=== PATIENT | male | born 1955 | race Caucasian/White ===

== ENCOUNTER → 2020-03-14 | Outpatient (CLI) | payer BC ==
[~2020-03-14] MED LIST: FUROSEMIDE 10 MG/ML 2 ML VIAL IV ONE
--- NOTE | 2020-03-14 16:05 | NM ---
EXAMINATION TYPE: NM lasix renogram DATE OF EXAM: 03/14/2020 COMPARISON: NONE HISTORY: Hydronephrosis Following administration of 10.1 mCi Tc 99m MAG3 with 20mg Lasix. Immediate images post injection FINDINGS: Left: 72.9 %. Right: 27.1 %. Max renal flow left: 2.5 minutes. Max renal flow right: 27.1 minutes. Satisfactory accumulation of radiotracer within both renal collecting systems. After the administrati on of Lasix, there is prompt excretion from both collecting systems. T 1/2 left: 20.5 minutes minutes. T 1/2 right: NA minutes. IMPRESSION: Obstruction of the right kidney
== END | disposition home or self-care (01) ==
LOC: RADNMMAIN 07:37
PROVIDERS: ATTEND Urology
DX: N28.89 Other specified disorders of kidney and ureter (principal)
CPT/HCPCS: 78708; A9562

== ENCOUNTER → 2020-03-25 | Outpatient (CLI) | payer BC ==
--- NOTE | 2020-03-25 10:28 | XR ---
EXAMINATION TYPE: XR chest 2V DATE OF EXAM: 03/25/2020 COMPARISON: NONE HISTORY: History of COPD with shortness of breath. TECHNIQUE: Frontal and lateral views of the chest are obtained. FINDINGS: Pectus excavatum deformity. There is some chronic parenchymal changes without suspicious fo kirti air space opacity, pleural effusion, or pneumothorax seen bilaterally. The cardiac silhouette si ze is within normal limits. The osseous structures are intact. IMPRESSION: No acute cardiopulmonary process.
[2020-03-25 10:36] LABS: Basophils # (A) 0.1 k/uL (0-0.2); Basophils % (A) 1 %; Eosinophils # (A) 0.2 k/uL (0-0.7); Eosinophils % (A) 4 %; HCT 45.1 % (39.0-53.0); HGB 14.2 gm/dL (13.0-17.5); Lymphocytes # (A) 1.8 k/uL (1.0-4.8); Lymphocytes % (A) 30 %; MCH 29.6 pg (25.0-35.0); MCHC 31.6 g/dL (31.0-37.0); MCV 93.6 fL (80.0-100.0); Mean Platelet Volume 6.6; Monocytes # (A) 0.3 k/uL (0-1.0); Monocytes % (A) 5 %; Neutrophils # (A) 3.6 k/uL (1.3-7.7); Neutrophils % (A) 58 %; Platelet Count 298 k/uL (150-450); RBC 4.82 m/uL (4.30-5.90); WBC 6.2 k/uL (3.8-10.6)
[2020-03-25 10:47] LABS: Calcium 9.5 mg/dL (8.4-10.2); Potassium 5.5 mmol/L (3.5-5.1)
== END ==
LOC: LABPAT 09:42
PROVIDERS: ATTEND Urology
DX: Z01.818 Encounter for other preprocedural examination (principal); N13.30 Unspecified hydronephrosis
CPT/HCPCS: 36415; 71046; 80048; 85025

== ENCOUNTER → 2020-04-01 | Day surgery (SDC) | payer BC ==
--- NOTE | 2020-03-28 17:26 | P.HPIHPCON ---
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 He underwent a Mag3 which showed evidence of obstruction on the right side and diminished function. Of note he is a heavy smoker. I discussed with him that I recommend he undergoes a cysto RPG with possible ureteroscopy to role out malignancy.I discussed with him he most likely will need pyeloplasty to address his obstruction. Discussed with him risk of ureteroscopy includes but not limited to bleeding, infection and injury to the ureter. He understood all the risks and agreed to proceed Consent for Procedure: I have explained the operation/procedure to the patient, including the risks, benefits, side effects, alternative therapies (including not receiving the proposed treatment or service), the likelihood of the patient achieving his/her goals, and potential recuperation problems for the procedure/sedation/analgesia, as well as any blood products, if indicated. I also explained to the patient the risks, benefits and side effects of the alternatives, as well as the risks related to not receiving the proposed procedure, care, treatment, or services. - Constitutional Constitutional: Denies chills, Denies fever - Cardiovascular Cardiovascular: Denies chest pain, Denies shortness of breath - Respiratory Respiratory: Denies cough, Denies 7 Medications and Allergies Allergies Allergy/AdvReac Type Severity Reaction Status Date / Time No Known Allergies Allergy Unverified 03/14/20 07:48 Surgical - Exam - General well developed, well nourished, no distress - Respiratory normal expansion, normal respiratory effort - Abdomen Abdomen: soft, non tender Assessment and Plan Assessment: 64 yo male with hx of right sided hydronephrosis suspicious for UPJO Plan: -OR for cysto right RPG possible ureteroscopy
[2020-03-29 09:20] VITALS: BMI 22.1
[~2020-04-01] MED LIST changes: +DEXAMETHASONE SOD PHOSPHATE 10 MG/ML 1 ML VIAL IV ONE; -FUROSEMIDE 10 MG/ML 2 ML VIAL IV ONE; +HYDROmorphone 0.5 MG/0.5 ML SYRINGE IVP PRN; +IOPAMIDOL-370 50ML BTL MISCELLANE ONE; +LACTATED RINGERS 1,000 ML IV ONE; +LACTATED RINGERS 1,000 ML IV SCH; +LIDOCAINE 1% (10MG/ML) FOR IV START INTRADERMA ONE; +LIDOCAINE 1% INJ 10MG/ML (20 ML MDV) ONE; +MIDAZOLAM 2 MG/2 ML VIAL IV PRN; +MIDAZOLAM 2 MG/2 ML VIAL ONE; +ONDANSETRON 4 MG/2 ML VIAL IVP ONE; +ONDANSETRON 4 MG/2 ML VIAL ONE; +PROPOFOL 10 MG/ML 20 ML VIAL IV ONE; +SUCCINYLCHOLINE CHLORIDE 100 MG/5 ML SYR IV ONE; +fentaNYL (PF) 50 MCG/ML 2 ML AMP ONE
[2020-04-01 17:19] VITALS: TEMP 96.9
--- NOTE | 2020-04-01 17:20 | P.OP ---
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 He underwent a Mag3 which showed evidence of obstruction on the right side and diminished function. Of note he is a heavy smoker. I discussed with him that I recommend he undergoes a cysto RPG with possible ureteroscopy to role out malignancy.I discussed with him he most likely will need pyeloplasty to address his obstruction. Discussed with him risk of ureteroscopy includes but not limited to bleeding, infection and injury to the ureter. He understood all the risks and agreed to proceed Operative Findings: narrowing at the UPJ,with tortures proximal ureter Description of Procedure: Patient was brought to the operating room, general anesthesia was induced. He was prepped and draped in sterile fashion placed in a dorsal lithotomy position. Cystoscopy fitted with a 22 sheath was inserted per urethra. cystoscopy was performed showed no abnormality within the bladder. at this point attention was carried to the right ureteral orifice. Which was intubated with a 6-[place] open-ended catheter. Retrograde pyelogram was performed which showed a torturous proximal ureter and a pinpoint narrowing at the UPJ with severe hydronephrosis. There was no filling defect along the ureter or any additional filling defects. The finding was consistent with UPJ obstruction. At this time the bladder was emptied, the patient tolerated the procedure well was taken to PACU in stable condition
[2020-04-01 17:57] VITALS: RESP 18
[2020-04-01 17:59] VITALS: PULSE 85
[2020-04-01 18:15] VITALS: BP 148/85
--- NOTE | 2020-04-02 07:08 | FL ---
EXAMINATION TYPE: FL urography retrograde DATE OF EXAM: 04/01/2020 COMPARISON: NONE HISTORY: CHECK PATENCY TECHNIQUE: Fluoroscopy. FINDINGS: Fluoroscopic guidance was provided for patency evaluation. IMPRESSION: As Above.
== END ==
LOC: OR 12:58
PROVIDERS: ATTEND Urology
DX: N13.30 Unspecified hydronephrosis (principal); N13.8 Other obstructive and reflux uropathy; J44.9 Chronic obstructive pulmonary disease, unspecified; F17.210 Nicotine dependence, cigarettes, uncomplicated; Z79.899 Other long term (current) drug therapy
CPT/HCPCS: 74420; 52005; J1100; J0690; J2405; Q9967

== ENCOUNTER → 2020-05-30 | Outpatient (CLI) | payer BC ==
[2020-05-30 07:44] LABS: Basophils # (A) 0.1 k/uL (0-0.2); Basophils % (A) 1 %; Eosinophils # (A) 0.3 k/uL (0-0.7); Eosinophils % (A) 3 %; HCT 45.6 % (39.0-53.0); HGB 14.9 gm/dL (13.0-17.5); Lymphocytes # (A) 3.2 k/uL (1.0-4.8); Lymphocytes % (A) 38 %; MCH 30.3 pg (25.0-35.0); MCHC 32.7 g/dL (31.0-37.0); MCV 92.7 fL (80.0-100.0); Mean Platelet Volume 6.9; Monocytes # (A) 0.4 k/uL (0-1.0); Monocytes % (A) 5 %; Neutrophils # (A) 4.2 k/uL (1.3-7.7); Neutrophils % (A) 50 %; Platelet Count 278 k/uL (150-450); RBC 4.92 m/uL (4.30-5.90); RDW 13.1 % (11.5-15.5); WBC 8.4 k/uL (3.8-10.6)
[2020-05-30 07:46] LABS: Appearance,Urine Clear (Clear); Bilirubin,Urine Negative (Negative); Blood,Urine Trace (Negative); Color,Urine Yellow; Glucose,Urine (UA) Negative (Negative); Ketones,Urine Negative (Negative); Leukocyte Esterase,Urine Negative (Negative); Nitrite,Urine Negative (Negative); PH, Urine 5.5 (5.0-8.0); Protein,Urine Negative (Negative); RBC,Urine 2 /hpf (0-5); Urobilinogen,Urine <2.0 mg/dL (<2.0); WBC,Urine <1 /hpf (0-5)
--- NOTE | 2020-05-30 07:46 | XR ---
EXAMINATION TYPE: XR chest 2V DATE OF EXAM: 05/30/2020 COMPARISON: 03/25/2020 HISTORY: 64-year-old male presurgical evaluation TECHNIQUE: Frontal and lateral views FINDINGS: The cardiomediastinal silhouette, aorta, and pulmonary vasculature are within normal limits. Mild hyp erinflation with increased retrosternal clear space. Lungs and pleural spaces are clear. IMPRESSION: Hyperinflation may relate to depth of inspiration or underlying COPD. Clinically correlate. Otherwise , no acute cardiopulmonary process.
[2020-05-30 08:09] LABS: African American GFR (CKD) >90 (>60 ml/min/1.73 sqM); Anion Gap 6 mmol/L; Blood Urea Nitrogen 20 mg/dL (9-20); Calcium 9.4 mg/dL (8.4-10.2); Carbon Dioxide 26 mmol/L (22-30); Chloride 105 mmol/L (98-107); Glucose 104 mg/dL (74-99); Non-African American GFR(CKD) 82 (>60 ml/min/1.73 sqM); Potassium 5.3 mmol/L (3.5-5.1); Sodium 137 mmol/L (137-145)
== END | disposition home or self-care (01) ==
LOC: LABPAT 07:09
PROVIDERS: ATTEND Urology
DX: Z01.818 Encounter for other preprocedural examination (principal); R91.8 Other nonspecific abnormal finding of lung field; R06.02 Shortness of breath; N13.30 Unspecified hydronephrosis; R58 Hemorrhage, not elsewhere classified; R35.0 Frequency of micturition
CPT/HCPCS: 36415; 71046; 80048; 81001; 85025

== ENCOUNTER 2020-05-31 07:41 | Day surgery (SDC) | payer BC ==
--- NOTE | 2020-05-30 09:48 | P.HPIHPCON ---
History of Present Illness H&P Date: 05/30/20 Chief Complaint: right sided hydronephrosis This is a 64-year-old male with history of right-sided hydronephrosis. He has history of right-sided UPJ obstruction, he underwent balloon dilation few years ago. He had a recent CT scan that demonstrated severe right hydronephrosis, he also underwent underwent a MAG3 and a retrograde pyelogram that confirmed obstruction. He had a pinpoint narrowing at the UPJ. I discussed with him given that he had recurrence following balloon dilation at this time I recommend he undergoes a pyeloplasty. Discussed with him the risk of the procedure which includes but not limited to bleeding infection and injury to the kidney. Also d iscussed there is a injury to the vessels is a potential of converting to an nephrectomy. Also discussed the risk of recurrence. Also discussed risk from anesthesia. He understood all the risk and agreed to proceed with right-sided pyeloplasty Consent for Procedure: I have explained the operation/procedure to the patient, including the risks, benefits, side effects, alternative therapies (including not receiving the proposed treatment or service), the likelihood of the patient achieving his/her goals, and potential recuperation problems for the procedure/sedation/analgesia, as well as any blood products, if indicated. I also explained to the patient the risks, benefits and side effects of the alternatives, as well as the risks related to not receiving the proposed procedure, care, treatment, or services. Medications and Allergies Home Medications Medication Instructions Recorded Confirmed Type Albuterol Nebulized [Ventolin 1.25 mg INHALATION DAILY 03/29/20 04/01/20 History Nebulized] Fluticasone/Vilanterol [Breo 1 inhalation PO Q24HR 03/29/20 04/01/20 History Ellipta 100-25 Mcg Inhaler] Montelukast [Singulair] 10 mg PO DAILY 03/29/20 04/01/20 History Ketorolac [Toradol] 10 mg PO Q6HR #15 tab 04/01/20 Rx Allergies Allergy/AdvReac Type Severity Reaction Status Date / Time No Known Allergies Allergy Verified 04/01/20 13:08 Surgical - Exam - General well developed, well nourished, no distress, no pain - Respiratory normal expansion, normal respiratory effort - Abdomen Abdomen: soft, non tender - Psychiatric oriented to time, oriented to person, oriented to place Assessment and Plan Assessment: Right-sided hydronephrosis Plan: OR for right-sided pyeloplasty
[2020-05-30 13:02] VITALS: BMI 50.8
[~2020-05-31 07:41] MED LIST changes: +HEPARIN SODIUM,PORCINE 5,000 UNIT/ML 1 ML VIAL SQ ONE; -IOPAMIDOL-370 50ML BTL MISCELLANE ONE; -LACTATED RINGERS 1,000 ML IV ONE; -LIDOCAINE 1% (10MG/ML) FOR IV START INTRADERMA ONE; +LIDOCAINE 1% (10MG/ML) FOR IV START INTRADERMA PRN; -LIDOCAINE 1% INJ 10MG/ML (20 ML MDV) ONE; -MIDAZOLAM 2 MG/2 ML VIAL ONE; -ONDANSETRON 4 MG/2 ML VIAL ONE; -PROPOFOL 10 MG/ML 20 ML VIAL IV ONE; -SUCCINYLCHOLINE CHLORIDE 100 MG/5 ML SYR IV ONE; -fentaNYL (PF) 50 MCG/ML 2 ML AMP ONE
[2020-05-31 08:40] VITALS: BP 131/82; PULSE 74; RESP 16; TEMP 98.7
[2020-05-31] MEDS ORDERED: ONDANSETRON 4 MG/2 ML VIAL ONE (08:41)
[2020-05-31] MEDS ORDERED: HEPARIN SODIUM,PORCINE 5,000 UNIT/ML 1 ML VIAL ONE (08:41)
[2020-05-31 09:08] LABS: Prothrombin Time 10.3 sec (9.0-12.0)
== END 2020-05-31 11:27 | disposition home or self-care (01) ==
LOC: OR 07:41
PROVIDERS: ATTEND Urology
DX: N13.30 Unspecified hydronephrosis (principal); Z53.29 Procedure and treatment not carried out because of patient's decision for other reasons; R94.31 Abnormal electrocardiogram [ECG] [EKG]; J44.9 Chronic obstructive pulmonary disease, unspecified; N13.5 Crossing vessel and stricture of ureter without hydronephrosis; K08.109 Complete loss of teeth, unspecified cause, unspecified class; I38 Endocarditis, valve unspecified; Z87.448 Personal history of other diseases of urinary system; Z98.890 Other specified postprocedural states; Z79.899 Other long term (current) drug therapy; Z79.51 Long term (current) use of inhaled steroids; Z79.1 Long term (current) use of non-steroidal anti-inflammatories (NSAID); Z87.891 Personal history of nicotine dependence; Z86.73 Personal history of transient ischemic attack (TIA), and cerebral infarction without residual deficits
CPT/HCPCS: 84132; 85610; J1644; J1100; J2405; 86850; 86900; 86901